=== PATIENT | female | born 1950 | race Caucasian/White ===

== ENCOUNTER 2018-11-05 10:45 | Outpatient (CLI) | payer OTHER | END 2018-11-05 16:25 | disposition home or self-care (01) | LOC: LAB 10:45 | DX: D37.4 Neoplasm of uncertain behavior of colon (principal); R19.5 Other fecal abnormalities; R19.4 Change in bowel habit ==

== ENCOUNTER 2018-11-09 05:00 | Day surgery (SDC) | payer OTHER ==
[2018-11-09] MEDS ORDERED: FIORINAL 50-321 EACH PO (13:46)
[2018-11-09] MEDS ORDERED: KLOR-CON M1010 MEQ PO (13:47)
== END 2018-11-09 15:20 | disposition home or self-care (01) ==
LOC: AMB-ENDOS 05:00
DX: D12.8 Benign neoplasm of rectum (principal); D12.5 Benign neoplasm of sigmoid colon; K64.8 Other hemorrhoids

== ENCOUNTER 2018-11-24 08:45 | Inpatient (IN) | payer OTHER ==
[~2018-11-24] VITALS: Ht 157.5 cm; Wt 43.1 kg
[~2018-11-24 08:45] MED LIST: FIORINAL 50-321 EACH PO; KLOR-CON M1010 MEQ PO
[2018-11-24] MEDS ORDERED: HYZAAR 50-12.51 EACH (09:45)
[2018-11-24] MEDS ORDERED: NORVASC2.5 M1 PO (09:45)
[2018-11-24] MEDS ORDERED: SYNTHROID112 MCG (09:45)
[2018-11-24] MEDS ORDERED: THEOCHRON300 MG (09:46)
[2018-11-24] MEDS ORDERED: SINGULAIR4 MG (09:46)
[2018-11-24] MEDS ORDERED: ANASTROZOLE PO (10:32)
[2018-11-24] MEDS ORDERED: FOLIC ACI PO (10:32)
[2018-11-24] MEDS ORDERED: FIORICET PO (10:33)
[2018-12-02] MEDS ORDERED: OXYC1TAB9 PO (10:39)
[2018-12-02] MEDS ORDERED: INTESTINEX680 M1 PO (10:39)
[2018-12-02] MEDS ORDERED: IMODIUM A-D2 M2 PO (10:40)
== END 2018-12-02 13:21 | disposition home or self-care (01) | DRG 331 ==
LOC: SURG 11-29 04:50 → O/R 11-29 04:50 → SURG 11-29 19:06
PROVIDERS: ADMIT Surgery
PROC: 07TC4ZZ Resection of Pelvis Lymphatic, Percutaneous Endoscopic Approach (ICD-10-PCS; 2018-11-29)
PROC: 0D1B4Z4 Bypass Ileum to Cutaneous, Percutaneous Endoscopic Approach (ICD-10-PCS; 2018-11-29)
PROC: 0DTN4ZZ Resection of Sigmoid Colon, Percutaneous Endoscopic Approach (ICD-10-PCS; principal; 2018-11-29 12:45)
DX: D12.7 Benign neoplasm of rectosigmoid junction (principal); E03.8 Other specified hypothyroidism; I11.9 Hypertensive heart disease without heart failure; G43.809 Other migraine, not intractable, without status migrainosus; F17.210 Nicotine dependence, cigarettes, uncomplicated

== ENCOUNTER 2019-02-21 08:12 | Outpatient (CLI) | payer OTHER ==
[~2019-02-21 08:12] MED LIST changes: +ANASTROZOLE PO; +FIORICET PO; +FOLIC ACI PO; +HYZAAR 50-12.51 EACH; +IMODIUM A-D2 M2 PO; +INTESTINEX680 M1 PO; +NORVASC2.5 M1 PO; +OXYC1TAB9 PO; +SINGULAIR4 MG; +SYNTHROID112 MCG; +THEOCHRON300 MG
== END 2019-02-21 08:26 | disposition home or self-care (01) ==
LOC: RX STUDY 08:12
DX: D37.5 Neoplasm of uncertain behavior of rectum (principal); R19.5 Other fecal abnormalities; R19.4 Change in bowel habit

== ENCOUNTER 2019-03-28 10:02 | Inpatient (IN) | payer OTHER ==
[~2019-03-28] VITALS: Ht 157.5 cm; Wt 44.9 kg
[2019-04-04] MEDS ORDERED: FOLIC ACID1 MG PO (08:58)
[2019-04-04] MEDS ORDERED: ANASTROZOLE1 MG PO (09:00)
[2019-04-04] MEDS ORDERED: BUTALBIT-ACETA1 EACH PO (09:04)
[2019-04-04] MEDS ORDERED: FIORINAL 50-321 EACH PO (09:06)
[2019-04-07] MEDS ORDERED: HYOSCYAMINE0.125 M1 SL (09:10)
[2019-04-07] MEDS ORDERED: ACIDOPHILUS-PE1 EAC2 PO (09:10)
[2019-04-07] MEDS ORDERED: OXYC1TAB9 PO (09:10)
[2019-04-07] MEDS ORDERED: DEXILANT60 MG PO (09:11)
== END 2019-04-07 09:31 | disposition home or self-care (01) | DRG 330 ==
LOC: EDSTATUS 10:30 → ADM 10:30 → O/R 04-04 05:45 → SURH 04-04 05:45
PROVIDERS: ADMIT Surgery
PROC: 0DQB4ZZ Repair Ileum, Percutaneous Endoscopic Approach (ICD-10-PCS; principal; 2019-04-04 07:00)
DX: Z43.2 Encounter for attention to ileostomy (principal); C20 Malignant neoplasm of rectum; D62 Acute posthemorrhagic anemia; I11.9 Hypertensive heart disease without heart failure; E03.8 Other specified hypothyroidism; J45.20 Mild intermittent asthma, uncomplicated; J44.9 Chronic obstructive pulmonary disease, unspecified; F17.210 Nicotine dependence, cigarettes, uncomplicated

== ENCOUNTER 2020-05-15 05:20 | Day surgery (SDC) | payer OTHER ==
[~2020-05-15 05:20] MED LIST changes: +ACIDOPHILUS-PE1 EAC2 PO; +ANASTROZOLE1 MG PO; +BUTALBIT-ACETA1 EACH PO; +DEXILANT60 MG PO; +FOLIC ACID1 MG PO; +HYOSCYAMINE0.125 M1 SL
== END 2020-05-15 11:10 | disposition home or self-care (01) ==
LOC: AMB-ENDOS 05:20
PROVIDERS: ATTEND Surgery
DX: D12.2 Benign neoplasm of ascending colon (principal); Z20.828 Contact with and (suspected) exposure to other viral communicable diseases

== ENCOUNTER 2021-08-20 05:10 | Day surgery (SDC) | payer OTHER | END 2021-08-20 12:15 | disposition home or self-care (01) | LOC: AMB-ENDOS 05:10 | PROVIDERS: ATTEND Surgery | DX: K62.89 Other specified diseases of anus and rectum (principal); Z20.822 Contact with and (suspected) exposure to COVID-19 ==